=== PATIENT | male | born 1975 | race Caucasian/White ===

== ENCOUNTER 2021-02-05 23:33 | Emergency (ER) | payer SELFPAY ==
[~2021-02-05] VITALS: Ht 175.3 cm; Wt 81.8 kg
--- NOTE | 2021-02-05 23:41 | PHYS DOC ---
Past History Past Medical History: Bronchitis, Diabetes Smoking: Cigarettes, Greater than 1 pack/day General Adult HPI: HPI: ".. I got this burning chest pain...".." I ve been coughing..". " I do smoke..".. " But this pain has been constant tonight.. I seems worse when I cough... ". "I had it the other day..may be 3 days ago.. but it went away...".." Other than the smoking.. I am in pretty good shape... 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 Pain is localized in the lower chest and more to the right side. Deep breaths and coughing make the pain worse. Patient denies any history of immunosuppression. No Felch ill contacts. Does smoke approxima tely 1 to 2 packs a day. Patient denies any history of previous cardiac issues. Patient denies any travel or specific ill contacts. Has had some history of borderline elevated glucose levels. No history of coagulopathy with him or family members. 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 The patient currently not following with a primary care. Review of Systems: Review of Systems: Constitutional: Denies fever or chills Eyes: Denies change in visual acuity HENT: Denies nasal congestion or sore throat Respiratory: History of nonproductive cough and pleuritic chest pain Cardiovascular: Complains of chest pain. Denies edema GI: Denies abdominal pain, nausea, vomiting, bloody stools or diarrhea : Denies dysuria Musculoskeletal: Denies back pain or joint pain Integument: Denies rash Neurologic: Denies headache, focal weakness or sensory changes Endocrine: Denies polyuria or polydipsia Lymphatic: Denies swollen glands Psychiatric: Denies depression or anxiety Family History: Family History: Noncontributory to presentation Current Medications: Current Meds: See nursing for home meds Allergies: Allergies: No known drug allergies Physical Exam: PE: Constitutional: Well developed, well nourished, moderate acute distress, non- toxic appearance. [] HENT: Normocephalic, atraumatic, bilateral external ears normal, oropharynx moist, no oral exudates, nose normal. [] Eyes: PERRLA, EOMI, conjunctiva normal, no discharge. [] Neck: Normal range of motion, no tenderness, supple, no stridor. [] Cardiovascular:Heart rate regular rhythm, no murmur [] Lungs & Thorax: Bilateral breath sounds equal apex with scattered wheezes on auscultation []. The patient does have some bilateral basilar crackles. Abdomen: Bowel sounds normal, soft, no tenderness, no masses, no pulsatile masses. [] Skin: Warm, dry, no erythema, no rash. [] Back: No tenderness, no CVA tenderness. [] Extremities: No tenderness, no cyanosis, no clubbing, ROM intact, no edema. [] No cording appreciated. Neurologic: Alert and oriented X 3, normal motor function, normal sensory function, no focal deficits noted. [] Psychologic: Affect anxious, judgement normal, mood normal. [] EKG: EKG: My interpretation EKG shows a sinus rhythm at 77 bpm. No acute morphology. [] Radiology/Procedures: Radiology/Procedures: [][place] [id number] IMAGING REPORT Signed PATIENT: PINKY ORTIZ ACCOUNT: [id number] : 1975 LOCATION: ER AGE: 45 SEX: M EXAM STATUS: PRE ER ORD. PHYSICIAN: SHIRLEY MEMBRENO MD REASON: Chest pain PROCEDURE: CHEST PA & LATERAL XR CHEST 2V Technique: PA and lateral views of the chest were obtained. Clinical History: Chest pain Comparison: None. Findings: The heart and pulmonary vasculature appear within normal limits. There are few perihilar basilar linear opacities. The pleural margins are clear. Impression: Mild bilateral infiltrates could be discoid atelectasis or atypical pneumonia. Electronically signed by: Nikita Powell III, MD (02/06/2021 12:09 AM) [facility] DICTATED AND SIGNED BY: NIKITA POWELL III, MD DATE: 02/06/21 0008 CC: SHIRLEY MEMBRENO MD; PCP,NO ~MTH0 0 Heart Score: C/O Chest Pain: Yes HEART Score for Chest Pain: HEART Score for Chest Pain Response (Comments) Value History Slighlty/Non-Suspicious 0 ECG Normal 0 Age < 45 0 Risk Factors 1 or 2 Risk Factors 1 Troponin < Normal Limit 0 Total 1 Risk Factors: Risk Factors: DM, Current or recent (<one month) smoker, HTN, HLP, family history of CAD, obesity. Risk Scores: Score 0 - 3: 2.5% MACE over next 6 weeks - Discharge Home Score 4 - 6: 20.3% MACE over next 6 weeks - Admit for Clinical Observation Score 7 - 10: 72.7% MACE over next 6 weeks - Early Invasive Strategies Course & Med Decision Making: Course & Med Decision Making Pertinent Labs and Imaging studies reviewed. (See chart for details) Patient reports almost complete relief of pain after Toradol IV. Patient appears to have chest wall pain and most likely atypical viral pneumonia. We will however start her on a Zithromax 250 mg a day. Use MDI 2 puffs 4 times a day. Take ibuprofen Tylenol as needed for pain. Encourage patient stop smoking. Patient follow-up primary care. Patient return if any concerns. Recommend self-isolation until results of Covid test available. Patient follow-up with primary care. Review ED work-up. Impression: 1. Chest pain-appears to be chest wall/pleuritic 2. Bronchitis/atypical pneumonia-suspect viral 3. Diabetes-glucose 173 [] Dragon Disclaimer: Dragon Disclaimer: This electronic medical record was generated, in whole or in part, using a voice recognition dictation system. Departure Departure: Referrals: PCP,NO (PCP) Scripts Azithromycin (ZITHROMAX) 250 Mg Tablet 250 MG PO DAILY for ANTI-BIOTIC for 5 Days, #5 TAB 0 Refills Prov: SHIRLEY MEMBRENO MD 02/06/21 Dragibis Disclaimer This chart was dictated in whole or in part using Voice Recognition software in a busy, high-work load, and often noisy Emergency Department environment. It may contain unintended and wholly unrecognized errors or omissions. SHIRLEY MEMBRENO MD Feb 05, 2021 23:41
[2021-02-05] MEDS ORDERED: ASPIRIN CHEWABLE 81 MG TABLET. PO ONE (23:45)
[2021-02-05] MEDS ORDERED: IV RINGERS SOLUTION,LACTATED 1,000 ML IV SCH (23:45)
--- NOTE | 2021-02-05 23:48 | EKG ---
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
--- NOTE | 2021-02-06 00:12 | RAD ---
XR CHEST 2V Technique: PA and lateral views of the chest were obtained. Clinical History: Chest pain Comparison: None. Findings: The heart and pulmonary vasculature appear within normal limits. There are few perihilar basilar raymond ear opacities. The pleural margins are clear. Impression: Mild bilateral infiltrates could be discoid atelectasis or atypical pneumonia. Electronically signed by: Luis Mayo III, MD (02/06/2021 12:09 AM) [facility]
[2021-02-06 00:14] LABS: BASO % 0 % (0-3); EOS # 0.2 x10^3/uL (0.0-0.7); EOS % 2 % (0-3); HEMATOCRIT 41.9 % (39.0-53.0); HEMOGLOBIN 14.6 g/dL (13.0-17.5); LYMPH # 2.9 x10^3/uL (1.0-4.8); LYMPH % 35 % (24-48); MEAN CORPUSCULAR HEMOGLOBIN 33 pg (25-35); MEAN CORPUSCULAR HGB CONC 35 g/dL (31-37); MEAN CORPUSCULAR VOLUME 93 fL (79-100); MONO # 0.6 x10^3/uL (0.0-1.1); MONO % 7 % (0-9); NEUT # 4.5 x10^3uL (1.8-7.7); NEUT % 56 % (31-73); PLATELET COUNT 255 x10^3/uL (140-400); RED CELL DISTRIBUTION WIDTH 14.1 % (11.5-14.5); WHITE BLOOD COUNT 8.1 x10^3/uL (4.0-11.0)
[2021-02-06 00:22] LABS: CALCIUM 8.8 mg/dL (8.5-10.1); GFR 81.2; POTASSIUM 3.9 mmol/L (3.5-5.1)
[2021-02-06 00:35] LABS: ALBUMIN 3.7 g/dL (3.4-5.0); DIRECT BILIRUBIN 0.1 mg/dL (0.0-0.2); MAGNESIUM 2.1 mg/dL (1.8-2.4); TOTAL BILIRUBIN 0.2 mg/dL (0.2-1.0); TOTAL PROTEIN 7.3 g/dL (6.4-8.2)
[2021-02-06] MEDS ORDERED: KETOROLAC 30 MG/ML VIAL. IVP ONE (01:30)
[2021-02-06 01:40] VITALS: BP 136/80
[2021-02-06] MEDS ORDERED: AZIT250T PO (01:48)
[2021-02-06 02:13] LABS: BARBITURATES NEG (NEG); BENZODIAZEPINES NEG (NEG); CANNABINOIDS NEG (NEG); COCAINE NEG (NEG); METHADONE NEG (NEG); OPIATES NEG (NEG); PHENCYCLIDINE NEG (NEG)
[2021-02-06 02:14] LABS: AMPHETAMINE/METHAMPHETAMINE NEG (NEG)
[2021-02-06 02:16] LABS: BILIRUBIN,URINE NEG (NEG); CLARITY,URINE CLEAR; COLOR,URINE YELLOW; GLUCOSE,URINE NEG (NEG); NITRITE,URINE NEG (NEG); UROBILINOGEN,URINE 0.2 mg/dL (0.2 mg/dL)
[2021-02-06 02:18] LABS: BACTERIA,URINE 0 /HPF (0-FEW); RBC,URINE 0 /HPF (0-2); WBC,URINE OCC /HPF (0-4)
[2021-02-06] MEDS ORDERED: AZITHROMYCIN 250 MG TABLET. PO ONE (02:30)
[2021-02-06] MEDS ORDERED: ALBUTEROL SULFATE 8GM INHALER. INH ONE (02:30)
[2021-02-06 20:11] LABS: THYROID STIM HORMONE (TSH) 1.292 uIU/mL (0.358-3.740)
== END 2021-02-06 02:18 | disposition home or self-care (01) ==
LOC: ER 23:33
DX: R07.81 Pleurodynia (principal); E11.9 Type 2 diabetes mellitus without complications; F17.210 Nicotine dependence, cigarettes, uncomplicated
CPT/HCPCS: 36415; 71046; 80048; 80061; 80076; 80307; 81001; 82550; 83690; 83735; 83880; 84443; 84484; 85025; 85379; 85610; 85730; 93005; 94640; 96361; 96374; 99285; J1885; J7120; 94664

== ENCOUNTER 2021-11-27 03:48 | Emergency (ER) | payer OTHER ==
[~2021-11-27] VITALS: Ht 177.8 cm; Wt 86.0 kg
[~2021-11-27 03:48] MED LIST: AZIT250T PO
[2021-11-27 03:58] VITALS: BP 169/96
--- NOTE | 2021-11-27 04:22 | PHYS DOC ---
Past History Past Medical History: Bronchitis, Diabetes Past Surgical History: Knee Replacement Additional Past Surgical Histo: right knee surgery Smoking: Cigarettes, Greater than 1 pack/day Alcohol Use: None Adult General Chief Complaint Chief Complaint: ABDOMINAL PAIN HPI HPI Patient is a 45-year-old male with a past medical history significant for hypertension, hyperlipidemia and probable COPD as he has been a smoker for 30 years at 1 to 2 packs who presents with a chief complaint of some right sided lower sharp chest pain, and increasing cough and mucus production over baseline, intermittently over the last couple of months. Does not regularly visit primary care physician. Denies any recent travel, traumas, illness, fevers, dyspnea on exertion, orthopnea, PND, edema, abdominal pain, nausea, vomiting, diarrhea. Denies any dysuria, hematuria, blood in the stool. Denies any numbness/weakness/tingling. Denies any trouble sitting, standing or walking. Review of Systems Review of Systems Review of systems otherwise unremarkable except noted in HPI Allergies Allergies Allergies Coded Allergies Type Severity Reaction Last Updated Verified No Known Drug Allergies 02/06/21 No Physical Exam Physical Exam Constitutional: Well developed, well nourished, no acute distress, non-toxic appearance. [] HENT: Normocephalic, atraumatic, oropharynx moist, Eyes: conjunctiva normal, no discharge. [] Neck: Normal range of motion, no tenderness, supple, no stridor. [] Cardiovascular:Heart rate regular rhythm, no murmur [] Lungs & Thorax: Global mild bilateral congestion and rhonchi with no wheeze, no respiratory distress or tachypnea Abdomen: no tenderness, no masses, Skin: Warm, dry, no erythema, no rash. [] Back: no CVA tenderness. [] Extremities: ROM intact, no edema. [] Neurologic: Alert and oriented X 3, normal motor function, normal sensory function, able to sit, stand and walk, no focal deficits noted. [] Psychologic: Affect normal, judgement normal, mood normal. [] Current Patient Data Vital Signs Vital Signs Date Time Temp Pulse Resp B/P (MAP) Pulse Ox O2 Delivery O2 Flow Rate FiO2 11/27/21 03:58 98.5 84 16 169/96 (120) 98 Room Air EKG EKG [] Radiology/Procedures Radiology/Procedures [] Heart Score C/O Chest Pain: Yes HEART Score for Chest Pain: HEART Score for Chest Pain Response (Comments) Value History Slighlty/Non-Suspicious 0 ECG Normal 0 Age < 45 0 Risk Factors 1 or 2 Risk Factors 1 Troponin < Normal Limit 0 Total 1 Risk Factors: Risk Factors: DM, Current or recent (<one month) smoker, HTN, HLP, family history of CAD, obesity. Risk Scores: Risk Factors: DM, Current or recent (<one month) smoker, HTN, HLP, family history of CAD, obesity. Course & Med Decision Making Course & Med Decision Making Patient is a 45-year-old male who presents with chest pain on the right for the last couple of months Vital signs notable for hypertension. Physical exam noted above. Placed on the monitor with IV access established. Low risk Wells. PERC negative. EKG with a rate of 92, regular rhythm, QRS of 88, QTc of 455, no STEMI. Chest x-ray. Given antibiotics, steroids, and DuoNeb. Covid swab pending. Given COVID education and quarantine instructions and discussed [employer] website. Discussed all findings with patient. Advised to establish care with a primary care physician and given contact information for local PCPs. Advised to call in the morning to arrange follow-up and establishment of care. Gave return precautions to the ED. Patient grateful, verbalized understanding and agreed with plan of discharge. Dragon Disclaimer Dragon Disclaimer This electronic medical record was generated, in whole or in part, using a voice recognition dictation system. Departure Departure: Impression: Primary Impression: Pneumonia Additional Impressions: Productive cough Chest pain Disposition: HOME / SELF CARE / HOMELESS Condition: IMPROVED Referrals: PCP,NO (PCP) MATHIEU ARMSTRONG MD Patient Instructions: Chest Pain (Nonspecific), Chronic Obstructive Pulmonary Disease, Chronic Obstructive Pulmonary Disease Exacerbation Additional Instructions: Thank you for coming into the emergency department tonight and allowing us to take care of you. Please read the attached information carefully to go over things that we discussed. Please take your antibiotics as prescribed and until gone. Please try to move away from smoking cigarettes as we discussed the reasons why including possible COPD diagnosis. Please follow-up in the morning with your primary care physician and if you do not have a provider you can call the provider noted in your discharge paperwork or in your community resource packet nursing in the morning to discuss your ED visit and set up an appointment for establishment of care and reevaluation. Please come back to the ED with new or concerning symptoms as discussed. You have been tested for COVID-19. It is an infection caused by a new type of coronavirus. COVID-19 will cause cold-like or mild flu symptoms in most. It can cause more severe symptoms like problems breathing in some. There is no treatment for COVID-19. The body will clear the infection over time. Self-care will help to ease discomfort. Steps to Take: Self-Care Rest as needed. Healthy habits may help you feel better. Steps include: Choose healthy foods including fruits and vegetables. Drink water throughout the day. Get plenty of sleep each night. If you smoke, try to quit. It may ease breathing. Avoid alcohol. Keep Others Healthy The virus can spread to others. Droplets are released every time you sneeze or cough. The droplets can get into the mouth, nose, or eyes of people near you and lead to i nfection. To lower the chances of spreading COVID-19 to others: Stay at home until your doctor has said it is safe to leave. If you tested positive this will mean staying isolated until both of the following are true: At least 7 days have passed since the start of illness. You are free of fever for at least 72 hours without the use of medicine. Also check the CDC.gov website for current Covid quarantine instructions and follow these if they are different than previously noted. During this time: - Avoid public areas, events, or transportation. Do not return to work or school until your doctor has said it is safe to do so. - Call ahead if you need to go to a medical center. Let them know you may have COVID-19. It will help them guide you where to go. They may also ask you to wear a facemask when you come to the office. - If you call for emergency medical services, let them know you may have COVID- 19. While at home: - Try to avoid close contact with others. Stay about 6 feet away. - If possible, spend most of your time in a separate room from others. - Use a face mask if you will be in close contact with others such as sharing a room or vehicle. - Have someone wipe down common surfaces in the home. Use household barkeep every day on areas like doorknobs, counters, or sinks. - Cough or sneeze into a tissue. Throw the tissue away right after use. If a tissue is not available, cough or sneeze into your elbow. - Wash your hands often. Wash them after sneezing or coughing. Use soap and water and wash for at least 20 seconds. Alcohol based hand truck car and bus cleaner can be used if soap and water is not available. - Do not prepare food for others. Avoid sharing personal items like forks, spoons, or toothbrushes. - Avoid close contact with pets while you are sick. There is no evidence of the virus passing to pets. This is a safety step until more is known about this virus. Isolation can be frustrating. Social interaction can help. Keep in touch with friends and family through phone and tech options. You can still interact with others in your home, just keep a safe distance of about 6 feet. Follow-up: Your doctors office will check in with you to see if there are any changes in your health. You may be asked to keep track of symptoms to share with them. They will also let you know when you are clear to be in public again. Problems to Look Out For: Contact your doctor if your recovery is not going as you expect. Get emergency care if you have problems such as: - Trouble breathing - Nonstop chest pain or pressure - Changes in awareness, confusion, or problems waking - Lips or face have bluish color - Worsening of symptoms If you think you have an emergency, call for emergency medical services right away. As taken from [facility] Scripts Albuterol Sulfate (PROAIR HFA INHALER) 8.5 Gm Hfa.aer.ad 2 PUFF IH PRN Q4-6HRS PRN for cough/wheeze for 21 Days, #1 INHALER 2 Refills Prov: BRETT PERALTA MD 11/27/21 Azithromycin (ZITHROMAX) 250 Mg Tablet 250 MG PO DAILY for PNA for 4 Days, #4 TAB 0 Refills Prov: BRETT PERALTA MD 11/27/21 Problem Qualifiers BRETT PERALTA MD Nov 27, 2021 04:22
[2021-11-27] MEDS: DEXAMETHASONE 4 MG TABLET PO ONE (04:40)
[2021-11-27] MEDS: IPRATRPIUM/ALBUTEROL 0.5/2.5MG 3 ML NEBU. NEB ONE (04:40)
[2021-11-27] MEDS ORDERED: AZIT250T PO (04:45)
[2021-11-27] MEDS ORDERED: ALBU2.5V8 IH (04:45)
[2021-11-27] MEDS ORDERED: AZITHROMYCIN 250 MG TABLET. PO ONE (05:00)
--- NOTE | 2021-11-27 06:11 | EKG ---
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
--- NOTE | 2021-11-27 06:36 | RAD ---
EXAM: CHEST ONE VIEW. HISTORY: Chest pain. COMPARISON: 02/05/2021. FINDINGS: A frontal view of the chest is obtained. There are no confluent infiltrates. Scarring in the lingula is stable. There is no pneumothorax or pl eural effusion. The heart is not enlarged. IMPRESSION: 1. No confluent infiltrates. Electronically signed by: Edwardo Du MD (11/27/2021 6:33 AM) [id number]
== END 2021-11-27 04:59 | disposition home or self-care (01) ==
LOC: ER 03:48
DX: J18.9 Pneumonia, unspecified organism (principal); E11.9 Type 2 diabetes mellitus without complications; F17.210 Nicotine dependence, cigarettes, uncomplicated; Z20.822 Contact with and (suspected) exposure to COVID-19
CPT/HCPCS: 71045; 84484; 93005; 94640; 99285; C9803; J8540; U0003

== ENCOUNTER 2021-11-30 22:38 | Emergency (ER) | payer OTHER ==
[~2021-11-30] VITALS: Ht 177.8 cm; Wt 86.0 kg
[~2021-11-30 22:38] MED LIST changes: +ALBU2.5V8 IH
--- NOTE | 2021-11-30 22:56 | PHYS DOC ---
Past History Past Medical History: Bronchitis, Diabetes Past Surgical History: Knee Replacement Additional Past Surgical Histo: right knee surgery Smoking: Cigarettes, Greater than 1 pack/day Alcohol Use: Rarely Adult General HPI HPI Patient is a 45-year-old male who presents with chest pain, sharp in nature, on the right, worse on inspiration better with rest after being diagnosed with pneumonia about 4 to 5 days ago. Covid negative. Taking his medications. Review of Systems Review of Systems Review of systems otherwise unremarkable except noted in HPI Allergies Allergies Allergies Coded Allergies Type Severity Reaction Last Updated Verified No Known Drug Allergies 11/27/21 No Physical Exam Physical Exam Constitutional: Well developed, well nourished, no acute distress, non-toxic appearance. [] HENT: Normocephalic, atraumatic, bilateral external ears normal, oropharynx moist, no oral exudates, nose normal. [] Eyes: conjunctiva normal, no discharge. [] Neck: Normal range of motion, no tenderness, supple, no stridor. [] Cardiovascular:Heart rate regular rhythm, no murmur [] Lungs & Thorax: Abdomen: soft, no tenderness, no masses, no pulsatile masses. [] Skin: Warm, dry, no erythema, no rash. [] Back: no CVA tenderness. [] Extremities: No tenderness, ROM intact, no edema. [] Neurologic: Alert and oriented X 3, no focal deficits noted. [] Psychologic: Affect normal, judgement normal, mood normal. [] EKG EKG [] Radiology/Procedures Radiology/Procedures [] Heart Score C/O Chest Pain: No Risk Factors: Risk Factors: DM, Current or recent (<one month) smoker, HTN, HLP, family history of CAD, obesity. Risk Scores: Risk Factors: DM, Current or recent (<one month) smoker, HTN, HLP, family history of CAD, obesity. Course & Med Decision Making Course & Med Decision Making Patient is a 45-year-old male who presents with chest pain that was diagnosed with pneumonia several days ago in the emergency department Vital signs notable for mild hypertension which resolved in the ED. Physical exam noted above. EKG with a rate of 76, QRS of 88, QTc of 441, no STEMI. Troponin normal. Chest x-ray nonconcerning. Low risk Wells. PERC negative. Discussed all findings with patient. Advised to follow-up first thing with his primary care physician to set up a post ER follow-up visit next week. Gave return precautions to the ED. Patient grateful, verbalized understanding and agreed with plan of discharge. [] Dragon Disclaimer Dragon Disclaimer This electronic medical record was generated, in whole or in part, using a voice recognition dictation system. Departure Departure: Impression: Primary Impression: Chest pain Disposition: HOME / SELF CARE / HOMELESS Condition: GOOD Referrals: PCP,NO (PCP) MATHIEU ARMSTRONG MD Patient Instructions: Chest Pain (Nonspecific) Additional Instructions: Thank you for coming into the emergency department tonight and allowing us to take care of you. Please read the attached information carefully to go over things we discussed. Please be sure to take any and all medications as prescribed. It is very important you follow-up with your primary care physician on Thursday to update on your ED visit and set up a reevaluation appointment so she can. Please come back with new or concerning symptoms as discussed. BRETT PERALTA MD Nov 30, 2021 22:56
[2021-11-30] MEDS ORDERED: ASPIRIN CHEWABLE 81 MG TABLET. PO ONE (23:00)
--- NOTE | 2021-11-30 23:06 | EKG ---
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
--- NOTE | 2021-12-01 00:07 | RAD ---
XR CHEST 1V Clinical History: Reason: CP ONSET TONIGHT / Spl. Instructions: / History: Technique: AP view of the chest was obtained at 11/30/2021 10:53 PM. Comparison: November 27, 2019. Findings: The cardiomediastinal silhouette is normal. The pulmonary vasculature is normal. The lungs and pleura l margins are clear. Impression: No evidence of an acute cardiopulmonary process. Electronically signed by: Luis Mayo III, MD (12/01/2021 12:05 AM) [facility]
[2021-12-01] MEDS ORDERED: KETOROLAC 30 MG/ML VIAL. ONE (00:17)
[2021-12-01 00:25] VITALS: BP 148/81
[2021-12-01] MEDS ORDERED: KETOROLAC 30 MG/ML VIAL. IM ONE (00:30)
[2021-12-01] MEDS ORDERED: LIDO:MAALOX 1:1 20 ML SINGLE DOSE. PO ONE (00:30)
== END 2021-12-01 00:26 | disposition home or self-care (01) ==
LOC: ER 22:38
DX: R07.89 Other chest pain (principal); E11.9 Type 2 diabetes mellitus without complications; F17.210 Nicotine dependence, cigarettes, uncomplicated
CPT/HCPCS: 36415; 71045; 84484; 93005; 96372; 99285; J1885